=== PATIENT | female | born 1995 | race Caucasian/White ===

== ENCOUNTER 2016-11-11 12:07 | Emergency (ER) | payer MEDICAID ==
[2016-11-11 12:19] VITALS: RESP 16
--- NOTE | 2016-11-11 12:31 | CPEKG ---
Heart Rate: 69 RR Interval: 870 P-R Interval: 136 QRSD Interval: 88 QT Interval: 404 QTC Interval: 433 P Severance: 61 QRS Severance: 65 T Wave Severance: 42 EKG Severity - NORMAL ECG - EKG Impression: SINUS RHYTHM Electronically Signed By: Edward Lisa 11-Nov-2016 15:29:25
[2016-11-11 12:50] LABS: % IMMATURE GRANULYOCYTES 0.2 % (0.0-1.1); ABSOLUTE IMMATURE GRANULOCYTES 0.01 10^3/uL (0.00-0.10); ADD DIFF? NO; ADD MORPH? NO; ADD SCAN? NO; ATYPICAL LYMPHOCYTE FLAG 10 (0-99); FRAGMENT RBC FLAG 0 (0-99); HEMATOCRIT 47.4 % (38.0-47.0); HEMOGLOBIN 16.1 g/dL (12.6-16.3); LEFT SHIFT FLG 0 (0-99); LIPEMIA HEMOLYSIS FLAG 90 (0-99); MEAN CELL HEMOGLOBIN 29.9 pg (27.9-34.1); MEAN CELL VOLUME 88.1 fL (81.5-99.8); MEAN PLATELET VOLUME 9.5 fL (8.7-11.7); PLATELET CLUMPS FLAG 10 (0-99); PLATELET COUNT 313 10^3/uL (150-400); RED BLOOD CELL COUNT 5.38 10^6/uL (4.18-5.33); RED CELL DISTRIBUTION WIDTH 12.4 % (11.5-15.2)
[2016-11-11 13:15] LABS: ANION GAP 12 mEq/L (8-16); CALCIUM 10.2 mg/dL (8.5-10.4); CARBON DIOXIDE 27 mEq/l (22-31); CHLORIDE 104 mEq/L (97-110); CREATININE 0.7 mg/dL (0.6-1.0); GLOMERULAR FILTRATION RATE > 60; GLUCOSE 76 mg/dL (70-100); POTASSIUM 3.8 mEq/L (3.5-5.2); SODIUM 143 mEq/L (134-144)
[2016-11-11 13:26] LABS: TROPONIN I < 0.012 ng/mL (0-0.034)
[2016-11-11] MEDS ORDERED: KETOROLAC 15 MG/1 ML SDV IVP ONE (14:24)
--- NOTE | 2016-11-11 14:28 | EDPHY ---
H & P Stated Complaint: Left chest pain, worse on inspiration. - Personal History LMP (Females 10-55): 1-7 Days Ago Current Tetanus/Diphtheria Vaccine: Unsure Current Tetanus Diphtheria and Acellular Pertussis (TDAP): Unsure - Medical/Surgical History Hx Asthma: No Hx Chronic Respiratory Disease: No Hx Diabetes: No Hx Cardiac Disease: No Hx Renal Disease: No Hx Cirrhosis: No Hx Alcoholism: No Hx HIV/AIDS: No Hx Splenectomy or Spleen Trauma: No Other PMH: Denies. - Social History Smoking Status: Never smoked HPI/ROS: Chief complaint: Chest pain History of present illness: This is a 21-year-old female who presents to the emergency department for evaluation of chest pain. Patient reports the onset of symptoms over the last 3-4 days. She describes a sharp pain that started in the center of her chest but now ball the left side of her chest. She states it is worse with movement such as sitting up or twisting as well as deep breathing. She reports associated trouble breathing on occasion. She denies precipitating factors. She denies alleviating factors. She denies other associated signs or symptoms including no fevers, no cold symptoms, no pain or swelling in the legs. She has never had similar. Review of systems: A 10 point review of systems was obtained and other than described above was negative (Aly Gomez) - Physical Exam Exam: General Appearance: Alert, nontoxic. Eyes: Pupils equal and round no pallor or injection. ENT, Mouth: Mucous membranes moist. Respiratory: There are no retractions, lungs are clear to auscultation. Cardiovascular: Regular rate and rhythm. Gastrointestinal: Abdomen is soft and nontender, no masses, bowel sounds normal. Neurological: Alert and oriented x4. Strength and sensation intact and symmetrical. Skin: Warm and dry, no rashes. Musculoskeletal: Neck is supple nontender. Extremities are symmetrical, full range of motion. Lower extremities without evidence of DVT on inspection. Psychiatric: Patient is oriented X 3, there is no agitation. (Aly Gomez) Constitutional: Initial Vital Signs Temperature (C) 36.8 C 11/11/16 12:17 Heart Rate 76 11/11/16 12:17 Respiratory Rate 16 11/11/16 12:17 Blood Pressure 108/76 11/11/16 12:17 O2 Sat (%) 97 11/11/16 12:17 O2 Delivery Mode Room Air Allergies/Adverse Reactions: No Known Allergies Allergy (Verified 11/11/16 12:19) Home Medications: Medication Instructions Recorded NK [No Known Home Meds] 11/11/16 Medical Decision Making - Diagnostics Imaging: Imaging Impressions Chest X-Ray 11/11/16 13:14 Impression: Mild perihilar bronchitis, with no focal alveolar consolidation. ED Course/Re-evaluation: Patient discussed with my secondary supervising physician Dr. Lilli Joe. Patient presents to the emergency department for evaluation of chest pain. She is nontoxic. She is afebrile and vital signs are stable. Blood studies are unremarkable. EKG unremarkable. Chest x-ray unremarkable. My suspicion for serious underlying pathology is low. Certainly this could be musculoskeletal given worsening of symptoms with movement such as bending or twisting. Patient will be discharged home. Home care is discussed. She is asked to follow up with a primary care doctor for recheck. Return precautions are given. Patient voiced understanding and agreement with plan. (Aly Gomez) Differential Diagnosis: Included but not limited to musculoskeletal pain, reflux, gastritis, pulmonary infections, pneumothorax, unlikely ACS or PE (Aly Gomez) Other Provider: The patient was evaluated and managed by the Physician Rodding Anode Worker/ Nurse Practitioner. I discussed the patient's presentation and course with the midlevel provider with them and agree with the evaluation. My co-signature indicates that I have reviewed this chart and I agree with the findings and plan of care as documented. I am the secondary supervising physician. (Lilli Joe) - Data Points Laboratory Results: Laboratory Results 11/11/16 12:36 11/11/16 12:36 11/11/16 11/11/16 11/11/16 12:36 12:36 12:36 WBC RBC Hgb Hct MCV MCH MCHC RDW Plt Count MPV Neut % (Auto) Lymph % (Auto) Brewster % (Auto) Eos % (Auto) Baso % (Auto) Nucleat RBC Rel Count Absolute Neuts (auto) Absolute Lymphs (auto) Absolute Monos (auto) Absolute Eos (auto) Absolute Basos (auto) Absolute Nucleated RBC Immature Gran % Immature Gran # D-Dimer < 0.27 ug/mLFEU ug/mLFEU (0.00-0.50) Sodium 143 mEq/L mEq/L (134-144) Potassium 3.8 mEq/L mEq/L (3.5-5.2) Chloride 104 mEq/L mEq/L (97-110) Carbon Dioxide 27 mEq/l mEq/l (22-31) Anion Gap 12 mEq/L mEq/L (8-16) BUN 12 mg/dL mg/dL (7-23) Creatinine 0.7 mg/dL mg/dL (0.6-1.0) Estimated GFR > 60 Glucose 76 mg/dL mg/dL (70-100) Calcium 10.2 mg/dL mg/dL (8.5-10.4) Troponin I < 0.012 ng/mL ng/mL (0-0.034) Beta HCG, Qual NEGATIVE 11/11/16 12:36 WBC 6.35 10^3/uL 10^3/uL (3.80-9.50) RBC 5.38 10^6/uL H 10^6/uL (4.18-5.33) Hgb 16.1 g/dL g/dL (12.6-16.3) Hct 47.4 % H % (38.0-47.0) MCV 88.1 fL fL (81.5-99.8) MCH 29.9 pg pg (27.9-34.1) MCHC 34.0 g/dL g/dL (32.4-36.7) RDW 12.4 % % (11.5-15.2) Plt Count 313 10^3/uL 10^3/uL (150-400) MPV 9.5 fL fL (8.7-11.7) Neut % (Auto) 65.6 % % (39.3-74.2) Lymph % (Auto) 26.8 % % (15.0-45.0) Brewster % (Auto) 5.7 % % (4.5-13.0) Eos % (Auto) 1.4 % % (0.6-7.6) Baso % (Auto) 0.3 % % (0.3-1.7) Nucleat RBC Rel Count 0.0 % % (0.0-0.2) Absolute Neuts (auto) 4.17 10^3/uL 10^3/uL (1.70-6.50) Absolute Lymphs (auto) 1.70 10^3/uL 10^3/uL (1.00-3.00) Absolute Monos (auto) 0.36 10^3/uL 10^3/uL (0.30-0.80) Absolute Eos (auto) 0.09 10^3/uL 10^3/uL (0.03-0.40) Absolute Basos (auto) 0.02 10^3/uL 10^3/uL (0.02-0.10) Absolute Nucleated RBC 0.00 10^3/uL 10^3/uL (0-0.01) Immature Gran % 0.2 % % (0.0-1.1) Immature Gran # 0.01 10^3/uL 10^3/uL (0.00-0.10) D-Dimer Sodium Potassium Chloride Carbon Dioxide Anion Gap BUN Creatinine Estimated GFR Glucose Calcium Troponin I Beta HCG, Qual Medications Given: Discontinued Medications Ketorolac Tromethamine (Toradol) 15 mg IVP EDNOW ONE Stop: 11/11/16 14:25 Last Admin: 11/11/16 15:00 Dose: 15 mg Departure - Departure Disposition: Home, Routine, Self-Care Clinical Impression: Chest pain Qualifiers: Chest pain type: unspecified Qualified Code(s): R07.9 - Chest pain, unspecified Condition: Good Instructions: Chest Pain (ED) Additional Instructions: Follow-up with the primary care doctor this week for recheck Use ibuprofen 600 mg 3 times a day for the next 2-3 days If symptoms worsen or new symptoms develop return to the emergency room for recheck Referrals: NONE *PRIMARY CARE P,. [Primary Care Provider] - As per Instructions Destini Mccauley MD [Medical Doctor] - As per Instructions [facility] [Clinic] - As per Instructions
[2016-11-11 15:05] VITALS: BP 110/75; PULSE 90; TEMP 97.5; O2SAT 98
== END 2016-11-11 15:08 | disposition home or self-care (01) ==
DX: R07.9 Chest pain, unspecified (principal)
CPT/HCPCS: 96374; J1885